=== PATIENT | female | born 1950 | race Caucasian/White ===

== ENCOUNTER → 2017-10-02 09:49 | Outpatient (REF) | payer MEDICARE, BC, SELFPAY ==
[2017-10-02 13:22] LABS: TSH 0.03 uIU/mL (0.358-3.74)
== END ==
LOC: NCHCN 09:49
PROVIDERS: PCP Internal Medicine; Visit Provider Internal Medicine
DX: E04.1 Nontoxic single thyroid nodule (principal); Z90.89 Acquired absence of other organs
CPT/HCPCS: 84443

== ENCOUNTER 2017-11-05 09:28 | Outpatient (REF) | payer MEDICARE, BC, SELFPAY ==
[2017-11-05 12:30] LABS: TSH 0.18 uIU/mL (0.358-3.74)
== END 2017-11-05 09:48 ==
LOC: NCHCN 09:28
PROVIDERS: PCP Internal Medicine; Visit Provider Internal Medicine
DX: E04.1 Nontoxic single thyroid nodule (principal); Z90.89 Acquired absence of other organs
CPT/HCPCS: 84443

== ENCOUNTER 2017-12-31 09:06 | Outpatient (REF) | payer MEDICARE, BC, SELFPAY ==
[2017-12-31 12:58] LABS: TSH 20.19 uIU/mL (0.358-3.74)
== END 2017-12-31 09:26 ==
LOC: NCHCN 09:06
PROVIDERS: PCP Internal Medicine; Visit Provider Internal Medicine
DX: E04.1 Nontoxic single thyroid nodule (principal); Z90.89 Acquired absence of other organs
CPT/HCPCS: 84443

== ENCOUNTER → 2018-01-30 09:03 | Outpatient (BNVA) | payer MEDICARE, BC, SELFPAY | PROVIDERS: PCP Internal Medicine; Visit Provider Orthopaedic Surgery | DX: Z47.1 Aftercare following joint replacement surgery (principal); Z96.651 Presence of right artificial knee joint | CPT/HCPCS: 99211; 99213 ==

== ENCOUNTER 2018-04-02 09:40 | Outpatient (REF) | payer MEDICARE, BC, SELFPAY ==
[2018-04-02 13:33] LABS: FREE T4 1.19 ng/dL (0.76-1.46)
== END 2018-04-02 10:00 ==
LOC: NCHCN 09:40
PROVIDERS: PCP Internal Medicine; Visit Provider Internal Medicine
DX: E89.0 Postprocedural hypothyroidism (principal)
CPT/HCPCS: 84439; 84443

== ENCOUNTER 2019-04-14 08:33 | Outpatient (REF) | payer MEDICARE, BC, SELFPAY ==
[2019-04-14 12:33] LABS: FREE T4 1.17 ng/dL (0.76-1.46); TSH 0.45 uIU/mL (0.36-3.74)
== END 2019-04-14 08:53 ==
LOC: NCHCN 08:33
PROVIDERS: PCP Internal Medicine; Visit Provider Internal Medicine
DX: E04.1 Nontoxic single thyroid nodule (principal); Z90.89 Acquired absence of other organs
CPT/HCPCS: 84439; 84443

== ENCOUNTER 2019-05-12 09:49 | Outpatient (REF) | payer MEDICARE, BC, SELFPAY ==
[2019-05-12 12:38] LABS: Anion Gap 9.6 mmol/L (3-11); BUN 22 mg/dL (7-18); CO2 26.4 mmol/L (21.0-32.0); CREATININE 0.63 mg/dL (0.55-1.02); Calculated LDL 107 mg/dL (<100); Chloride 105 mmol/L (98-107); Cholesterol 212 mg/dL (<200); Glucose 97 mg/dL (74-106); HDL Cholesterol 75 mg/dL (40-60); Potassium 4.4 mmol/L (3.5-5.1); Sodium 141 mmol/L (136-145); Triglyceride 151 mg/dL (<150)
[2019-05-12 13:31] LABS: HCT 40.8 % (36.0-46.0); HGB 13.5 g/dL (12.0-15.5); Mean Corp. HGB Concentration 33.1 g/dL (32.0-36.0); Mean Corpuscular Hemoglobin 29.5 pg (27.0-33.0); Mean Corpuscular Volume 89.1 fL (80-95); Mean Platelet Volume 9.9 fL (8.0-11.0); Platelet Count 325 x1000/uL (130-400); RBC 4.58 m/cumm (4.00-5.20); RBC Distribution Width 13.6 % (11.7-14.6); White Blood Cell Count 6.31 k/cumm (4.4-10.8)
[2019-05-12 13:52] LABS: Hemoglobin A1C 6.8 % (3.8-5.6)
[2019-05-13 11:50] LABS: Hepatitis C Ab w Rflx HCV PCR Negative (Negative)
== END 2019-05-12 10:09 ==
LOC: NCHCN 09:49
PROVIDERS: PCP Internal Medicine; Visit Provider Internal Medicine
DX: R73.03 Prediabetes (principal); E89.0 Postprocedural hypothyroidism; Z11.59 Encounter for screening for other viral diseases
CPT/HCPCS: 80048; 80061; 85027; 86803; 83036

== ENCOUNTER 2019-07-08 00:36 | Outpatient (CLI) | payer MEDICARE, BC, SELFPAY ==
--- NOTE | 2019-07-08 | DI.DEXA_ITS ---
EXAM: XR DEXA BONE DENSITY W/WO [place] CLINICAL HISTORY: MENOPAUSAL AND POSTMENOPAUSAL DISORDER, N95.9 TECHNIQUE: COMPARISON: No exams were available for comparison FINDINGS: DEXA scan was performed according to the usual protocol. Please see the accompanying data sheets. Left hip scanning shows T-score -1.9 with left femoral neck T-score -1.8. Prior scan of May 2017 s howed left hip T-score -1.9. Lumbar spine scanning shows T-score -1.3, prior study of May 2017 showed lumbar T-score -1.5. Left forearm scanning shows T-score -1.7, prior study of 2018 showed T-score -1.4. IMPRESSION: Findings consistent with osteopenia according to the WHO criteria. Lateral vertebral scanogram show s no evidence of a vertebral compression fracture.
== END 2019-07-08 00:56 ==
PROVIDERS: PCP Internal Medicine; Visit Provider Internal Medicine
DX: M85.88 Other specified disorders of bone density and structure, other site (principal); N95.9 Unspecified menopausal and perimenopausal disorder
CPT/HCPCS: 77080

== ENCOUNTER 2020-06-10 20:28 | Outpatient (REF) | payer MEDICARE, BC, SELFPAY | END 2020-06-10 20:29 | disposition home or self-care (01) | LOC: NCHCN 20:28 | PROVIDERS: PCP Internal Medicine; Visit Provider Internal Medicine | DX: E89.0 Postprocedural hypothyroidism (principal) | CPT/HCPCS: 84439; 84443 ==

== ENCOUNTER 2021-06-01 09:55 | Outpatient (REF) | payer MEDICARE, SELFPAY ==
[2021-06-01 15:46] LABS: HCT 40.7 % (36.0-46.0); HGB 13.3 g/dL (11.2-15.7); MCH 29.7 pg (27.0-33.0); MCHC 32.7 % (32.0-36.0); MCV 90.8 fL (80-95); MPV 9.9 fL (8.0-11.0); Platelet Count 284 10^3/uL (130-400); RBC 4.48 10^6/uL (3.93-5.22); RDW 13.2 % (11.7-14.6); RDW-SD 43.9 fL; WBC 7.26 10^3/uL (4.4-10.8)
[2021-06-01 16:11] LABS: Anion Gap 8.7 mmol/L (3-11); BUN 22 mg/dL (7-18); CO2 28.3 mmol/L (21.0-32.0); CREATININE 0.9 mg/dL (0.55-1.02); Chloride 104 mmol/L (98-107); Glucose 197 mg/dL (74-106); Potassium 3.9 mmol/L (3.5-5.1); Sodium 141 mmol/L (136-145); TSH (W/Ref FT4) 0.21 uIU/mL (0.36-3.74)
[2021-06-01 17:09] LABS: FREE T4 1.15 ng/dL (0.76-1.46)
== END 2021-06-01 09:56 | disposition home or self-care (01) ==
LOC: NCHCN 09:55
PROVIDERS: PCP Internal Medicine; Visit Provider Family Medicine
DX: E11.9 Type 2 diabetes mellitus without complications (principal); E89.0 Postprocedural hypothyroidism; M85.88 Other specified disorders of bone density and structure, other site
CPT/HCPCS: 80048; 85027; 84439; 84443

== ENCOUNTER 2022-06-22 14:00 | Outpatient (REF) | payer MEDICARE, SELFPAY ==
[2022-06-22 14:49] LABS: HCT 39.2 % (36.0-46.0); MCH 29.8 pg (27.0-33.0); MCHC 33.2 % (32.0-36.0); MCV 90 fL (80-95); MPV 9.7 fL (8.0-11.0); Platelet Count 322 10^3/uL (130-400); RBC 4.36 10^6/uL (3.93-5.22); RDW 13.2 % (11.7-14.6); RDW-SD 43.8 fL; WBC 6.14 10^3/uL (4.4-10.8)
[2022-06-22 15:27] LABS: ALT 29 U/L (14-59); AST 16 U/L (15-37); Albumin 3.6 g/dL (3.4-5.0); Alkaline Phosphatase 88 U/L (46-116); Anion Gap 7.2 mmol/L (3-11); BUN 22 mg/dL (7-18); Bilirubin, Total 0.4 mg/dL (0.2-1.0); CO2 29.8 mmol/L (21.0-32.0); CREATININE 0.9 mg/dL (0.55-1.02); Chloride 105 mmol/L (98-107); Estimated GFR 67.08 (mL/min/1.73m2); Glucose 106 mg/dL (74-106); Potassium 4.1 mmol/L (3.5-5.1); Sodium 142 mmol/L (136-145); TSH (W/Ref FT4) 0.06 uIU/mL (0.36-3.74)
== END 2022-06-22 14:01 | disposition home or self-care (01) ==
LOC: NCHCN 14:00
PROVIDERS: PCP Internal Medicine; Visit Provider Family Medicine
DX: E89.0 Postprocedural hypothyroidism (principal)
CPT/HCPCS: 80053; 85027; 84439; 84443

== ENCOUNTER 2022-09-26 13:58 | Outpatient (REF) | payer MEDICARE, SELFPAY ==
[2022-09-26 22:04] LABS: TSH 13.62 uIU/mL (0.36-3.74)
== END 2022-09-26 13:59 | disposition home or self-care (01) ==
LOC: NCHCN 13:58
PROVIDERS: PCP Internal Medicine; Visit Provider Family Medicine
DX: E89.0 Postprocedural hypothyroidism (principal)
CPT/HCPCS: 84443

== ENCOUNTER 2022-12-19 16:04 | Outpatient (REF) | payer MEDICARE, SELFPAY ==
[2022-12-19 15:56] LABS: TSH (W/Ref FT4) 3.25 uIU/mL (0.36-3.74)
== END 2022-12-19 16:05 | disposition home or self-care (01) ==
LOC: NCHCN 16:04
PROVIDERS: PCP Internal Medicine; Visit Provider Family Medicine
DX: E89.0 Postprocedural hypothyroidism (principal)
CPT/HCPCS: 84443

== ENCOUNTER 2023-06-26 16:40 | Outpatient (REF) | payer BC, SELFPAY ==
[2023-06-26 21:25] LABS: Anion Gap 5.7 mmol/L (3-11); BUN 22 mg/dL (7-18); CO2 30.3 mmol/L (21.0-32.0); CREATININE 0.9 mg/dL (0.55-1.02); Calcium 9.2 mg/dL (8.5-10.1); Chloride 104 mmol/L (98-107); Estimated GFR 66.67 (mL/min/1.73m2); Glucose 119 mg/dL (74-106); Potassium 3.9 mmol/L (3.5-5.1); Sodium 140 mmol/L (136-145)
== END 2023-06-26 16:41 | disposition home or self-care (01) ==
LOC: NCHCN 16:40
PROVIDERS: Visit Provider Family Medicine
DX: E11.9 Type 2 diabetes mellitus without complications (principal)
CPT/HCPCS: 80048

== ENCOUNTER 2023-08-03 22:43 | Outpatient (REF) | payer MEDICARE, SELFPAY | END 2023-08-03 22:44 | disposition home or self-care (01) | LOC: NCHCN 22:43 | PROVIDERS: Visit Provider Urology | DX: R35.0 Frequency of micturition (principal) | CPT/HCPCS: 87086 ==

== ENCOUNTER 2023-12-26 13:29 | Outpatient (REF) | payer MEDICARE, SELFPAY ==
[2023-12-26 17:20] LABS: TSH (W/Ref FT4) 3.11 uIU/mL (0.36-3.74)
== END 2023-12-26 13:30 | disposition home or self-care (01) ==
LOC: NCHCN 13:29
PROVIDERS: Visit Provider Family Medicine
DX: E03.9 Hypothyroidism, unspecified (principal)
CPT/HCPCS: 84443

== ENCOUNTER 2024-12-31 15:54 | Outpatient (REF) | payer MEDICARE, SELFPAY ==
[2024-12-31 14:26] LABS: Abs Immature Grans 0.02 10^3/uL (0.0-0.06); HCT 39.1 % (36.0-46.0); HGB 12.7 g/dL (11.2-15.7); Immature Grans % 0.3 %; MCH 29.3 pg (27.0-33.0); MCHC 32.5 % (32.0-36.0); MCV 90 fL (80-95); MPV 9.6 fL (8.0-11.0); Platelet Count 275 10^3/uL (130-400); RBC 4.34 10^6/uL (3.93-5.22); RDW 13.3 % (11.7-14.6); RDW-SD 44.4 fL; WBC 6.65 10^3/uL (4.4-10.8)
[2024-12-31 14:50] LABS: Anion Gap 8.2 mmol/L (3-11); BUN 22 mg/dL (7-18); CO2 26.8 mmol/L (21.0-32.0); Calcium 8.8 mg/dL (8.5-10.1); Chloride 106 mmol/L (98-107); Glucose 122 mg/dL (74-106); Potassium 3.8 mmol/L (3.5-5.1); Sodium 141 mmol/L (136-145); TSH 3.22 uIU/mL (0.36-3.74)
[2024-12-31 15:28] LABS: Microalb ug/mg Crea 4.0 ug/mg Cr
== END 2024-12-31 15:55 | disposition home or self-care (01) ==
LOC: NCHCN 15:54
PROVIDERS: Visit Provider Family Medicine
DX: E03.9 Hypothyroidism, unspecified (principal); E11.9 Type 2 diabetes mellitus without complications
CPT/HCPCS: 80048; 82043; 82570; 84443; 85025